=== PATIENT | female | born 1960 | race Caucasian/White ===

== ENCOUNTER 2023-05-24 12:38 | Emergency (ER) | payer BC ==
[2023-05-24 12:49] VITALS: O2SAT 98
--- NOTE | 2023-05-24 13:01 | ERPHSYRPT ---
- History of Present Illness Source: patient Exam Limitations: no limitations Patient Subjective Stated Complaint: Pt states "I fell about two weeks ago and went to my dr and she gave me steroids and they helped a little but the pain is just terrible. [facility] went to [facility] and they said they do not do anything for pain management and I was hoping for a shot, I also missed work and need a work slip." Triage Nursing Assessment: Pt presented alert and oriented X 3, skin pwd. pt ambulates with an upright steady gait, able to speak in clear full sentences. Pt holding the right side of her neck. pt in no apparent respiratory distress. pt has pain on turning her head. Physician History: Patient is a 61-year-old female who slipped and fell in her garage 2 weeks ago now complains of posterior headache and cervical pain. Patient seen her PCP about the fall and was prescribed prednisone without any improvement in pain. Patient states that her pain is 7-8 out of 10 and worse with movement. There was no LOC but patient states that she was dazed. She denies any other injury at this time. Occurred: other ( 2 weeks ago) Reason for Fall: slipped Injuries/Pain Location: head, neck Loss of Consciousness: dazed Severity of Pain-Max: severe Severity of Pain-Current: severe Modifying Factors: Improves With: movement Associated Symptoms (Fall): denies symptoms Allergies/Adverse Reactions: No Known Drug Allergies Allergy (Verified 05/24/23 12:49) Home Medications: Amlodipine Besylate 5 mg [Norvasc 5 mg] 5 mg PO DAILY 05/24/23 [History] Atorvastatin Calcium [Lipitor] 80 mg PO DAILY 05/24/23 [History] Metoprolol Succinate 25 mg Xl* [Toprol-Xl 25MG Tablets] 25 mg PO DAILY 05/24/23 [History] Hx Tetanus, Diphtheria Vaccination/Date Given: No Hx Influenza Vaccination/Date Given: Yes Hx Pneumococcal Vaccination/Date Given: No Immunizations Up to Date: No Travel Risk - International Travel Have you traveled outside of the country in past 3 weeks: No - Coronavirus Screening Are you exhibiting any of the following symptoms?: No Close contact with a COVID-19 positive Pt in past 14-21 Days: No - Vaccine Status Have you recieved a Covid-19 vaccination: No - Review of Systems Constitutional: No Symptoms Eyes: No Symptoms Ears, Nose, & Throat: No Symptoms Respiratory: No Symptoms Cardiac: No Symptoms Abdominal/Gastrointestinal: No Symptoms Genitourinary Symptoms: No Symptoms Skin: No Symptoms Neurological: No Symptoms, Headache Psychological: No Symptoms Endocrine: No Symptoms Hematologic/Lymphatic: No Symptoms Immunological/Allergic: No Symptoms - Past Medical History Pertinent Past Medical History: Yes Cardiac History: High Cholesterol, Hypertension - Past Surgical History Past Surgical History: Yes Other Surgical History: thyroidectomy. tubal - Social History Smoking Status: Current every day smoker How long have you smoked: years Exposure to second hand smoke: Yes Drug Use: none Patient Lives Alone: No - Nursing Vital Signs Nursing Vital Signs: Initial Vital Signs Temperature 99.0 F 05/24/23 12:41 Pulse Rate 67 05/24/23 12:41 Respiratory Rate 18 05/24/23 12:41 Blood Pressure 159/64 05/24/23 12:41 O2 Sat by Pulse Oximetry 98 05/24/23 12:41 Pain Scale Pain Intensity 5 hypertensive - [place] Coma Score Best Eye Response ([place]): (4) open spontaneously Best Verbal Response ([place]): (5) oriented Best Motor Response ([place]): (6) obeys commands [place] Total: 15 - Physical Exam General Appearance: no apparent distress Head Injury: tenderness ( occipital tenderness palpation without palpable fracture or hematoma) Eye Exam: PERRL/EOMI ENT Exam: airway nml, No clear fluid (ears), No clear fluid (nose) Neck Exam: trachea midline, tenderness ( C-spine mildly tender to palpation.) Respiratory/Chest Exam: normal breath sounds, No respiratory distress Cardiovascular Exam: normal heart sounds, regular rate/rhythm, normal peripheral pulses, No murmur Gastrointestinal Exam: soft, normal bowel sounds Back Exam: normal inspection ( No T or L-spine tenderness palpation) Extremity Exam: normal inspection, normal range of motion, pelvis stable Neurologic Exam: alert, oriented x 3, cooperative, insole and outsole preparer II-XII nml as tested, n ormal mood/affect, nml cerebellar function, nml station & gait, sensation nml Skin Exam: normal color, warm, dry SpO2 Interpretation: normal SpO2: 98 O2 Delivery: Room Air - Course Nursing assessment & vital signs reviewed: Yes - CT Exams Head CT Interpretation: Discussed w/radiologist (No intracranial pathology) Cervical Spine CT Interpretation: Discussed w/radiologist ( C2 fracture type III) Ordered Tests: Active Orders 24 hr Category Date Time Status IV Insertion STAT Care 05/24/23 14:36 Completed CERVICAL SPINE WO CONTRAST [CT] Stat Exams 05/24/23 12:59 Completed HEAD WITHOUT CONTRAST [CT] Stat Exams 05/24/23 12:59 Completed Medication Summary Discontinued Medications Generic Name Dose Route Start Last Admin Trade Name Freq PRN Reason Stop Dose Admin Droperidol 2.5 mg 05/24/23 13:27 05/24/23 13:29 Droperidol 5 Mg/2 Ml Vial IM 05/24/23 13:28 2.5 mg STAT ONE Administration Droperidol Confirm 05/24/23 13:29 Droperidol 5 Mg/2 Ml Vial Administered 05/24/23 13:30 Dose 5 mg .ROUTE .STK-MED ONE Fentanyl Citrate 25 mcg 05/24/23 14:49 05/24/23 15:03 Fentanyl Citrate 100 Mcg/2 Ml* Vial IV 05/24/23 14:50 25 mcg STAT ONE Administration Fentanyl Citrate Confirm 05/24/23 14:56 Fentanyl Citrate 100 Mcg/2 Ml* Vial Administered 05/24/23 14:57 Dose 100 mcg .ROUTE .STK-MED ONE Ondansetron HCl 4 mg 05/24/23 14:50 05/24/23 15:02 Ondansetron Hcl 4 Mg/2 Ml Vial IV 05/24/23 14:51 4 mg STAT ONE Administration Ondansetron HCl Confirm 05/24/23 14:55 Ondansetron Hcl 4 Mg/2 Ml Vial Administered 05/24/23 14:56 Dose 4 mg .ROUTE .STK-MED ONE - Progress Progress Note: 05/24/23 15:20 Nursing note and vital signs reviewed. No food or housing insecurity noted. Patient unable to complete CT of head and C-spine due to pain. Patient given 2.5 mg IM droperidol and was able to undergo CT scanning. Dr. Lugo called and stated that patient had a C2 type III fracture. C-collar placed on patient per physician and nurse. IV access started and 25 mcg IV fentanyl/4 mg IV Zofran given to patient. Patient neurologically intact during entire visit with full range of motion of all 4 extremities and with intact sensation in all 4 extremities. Patient accepted by Dr. Chery,neurosurgery, at . Counseled pt/family regarding: diagnosis, rad results Medical Desision Making - Independent Historian Additional History obtained from: Child - Discussion of managment Care discussed with:: specialist - Diagnostic Testing Radiological Interpretation: Reviewed by me - Risk of complications The pt has a high risk of morbidity or mortality based on: Decision regarding hospitilization or escalation of hosp level of care - Departure Departure Disposition: Transfer Clinical Impression: Cervical spine fracture Condition: Stable Critical Care Time: Yes Critical Care Time(excluding separately billable procedures): Critical 30-74 mins Referrals: JACINTO LARA MD [Primary Care Provider] - Follow up/PCP as directed
--- NOTE | 2023-05-24 14:33 | XRAY ---
Indication: Head injury one week ago. Multiple contiguous axial images obtained through the head without contrast. Comparison: None Normal appearing brain parenchyma, ventricles, and bony calvarium for patient's age. Visualized paranasal sinuses and mastoid air cells are clear. Impression: Normal CT head without contrast exam.
--- NOTE | 2023-05-24 14:43 | XRAY ---
Indication: Head injury one week ago. Multiple contiguous axial images obtained through the cervical spine. Sagittal and coronal reformatted images obtained. Comparison: None Axial images demonstrates minimally displaced acute fracture body of C2 without spinal canal encroachment. Fracture line does extend to left transverse foramen. C2 also demonstrates remote appearing odontoid type III fracture. Superior endplate T1 demonstrates minimal concave deformity with hairline fracture of uncertain chronicity with less than 25% height loss. Elsewhere mild/moderate multilevel bilateral degenerative facet hypertrophy, right greater than left. Sagittal and coronal reformatted images demonstrates lordotic straightening, positional versus paraspinal spasm. Incidental tiny C5/C6 limbus vertebrae. No subluxation or jumped facet. Normal appearing craniocervical junction. Visualized noncontrasted soft tissues demonstrates mild bilateral carotid calcifications and 1.5 cm left thyroid hypodense nodule/cyst. Lung apices demonstrate pulmonary emphysema with minimal left apical fibrosis/scarring. Impression: 1. Acute fracture C2 vertebral body as detailed. Incidental old odontoid type III fracture. Also T1 superior endplate fracture of uncertain chronicity. 2. Chronic findings including multilevel bilateral degenerative facet hypertrophy, carotid calcifications, left thyroid hypodense nodule/cyst, pulmonary emphysema, and left apical bony fibrosis/scarring. Comment: Telephone report given to Dr. Figueroa at 1432 hrs. on May 24, 2023.
[2023-05-24] MEDS ORDERED: SUBLIMAZE 100 MCG/2 ML IV ONE (14:49)
[2023-05-24] MEDS ORDERED: Zofran 4 MG/2 ML VIAL IV ONE (14:50)
[2023-05-24] MEDS ORDERED: Zofran 4 MG/2 ML VIAL ONE (14:55)
[2023-05-24] MEDS ORDERED: SUBLIMAZE 100 MCG/2 ML ONE (14:56)
[2023-05-24 15:49] VITALS: BP 170/84; PULSE 82; RESP 18; TEMP 97.2
== END 2023-05-24 16:14 | disposition short-term general hospital (02) ==
LOC: ED 12:38
DX: S12.190A Other displaced fracture of second cervical vertebra, initial encounter for closed fracture (principal); W19.XXXA Unspecified fall, initial encounter; Y92.015 Private garage of single-family (private) house as the place of occurrence of the external cause; R51.9 Headache, unspecified; M54.2 Cervicalgia; E78.5 Hyperlipidemia, unspecified; I10 Essential (primary) hypertension; Z79.899 Other long term (current) drug therapy; Z28.310 Unvaccinated for COVID-19; Z72.0 Tobacco use
CPT/HCPCS: 36000; 70450; 72125; 96372; 96374; 99285; 99291; J2405; J3010; L0172